=== PATIENT | female | born 1960 | race Caucasian/White ===

== ENCOUNTER 2021-08-07 21:53 | Emergency (ER) | payer OTHER ==
[~2021-08-07] VITALS: Ht 180.3 cm; Wt 81.6 kg
--- NOTE | 2021-08-07 22:25 | NUR ---
[id number] FROM [facility] C/O SYNCOPAL EPISODE W/VOMITING PER EMS LOW BP GIVEN 300 CC NS. PT A/OX3. TOLERATING R/A WELL WITH NO SOB. CONNECTED PT TO POX AND MONITOR. SAFETY MEASURES IN PLACE.
[2021-08-07] MEDS ORDERED: IV NS 0.9% 1,000 ML BAG IV ONE (22:30)
--- NOTE | 2021-08-07 22:38 | NUR ---
POC BS ACCUCHECK 139; DR. YANCEY DO AWARE
--- NOTE | 2021-08-07 22:39 | NUR ---
[facility] ANALYST AT PT'S BEDSIDE
[2021-08-07 23:11] LABS: BASOPHILS % (AUTO) 0.5 % (0.0-2.0); EOSINOPHILS % (AUTO) 1.2 % (0.0-6.0); HEMATOCRIT 41 % (33-45); HEMOGLOBIN 13.5 g/dL (11.5-14.8); LYMPHOCYTES # (AUTO) 2.4 K/uL (0.8-4.8); MEAN CORPUSCULAR HGB CONC 33 g/dl (31.0-36.0); MEAN CORPUSCULAR VOLUME 94 fL (82-100); MONOCYTES # (AUTO) 0.5 K/uL (0.1-1.30); MONOCYTES % (AUTO) 7.1 % (2.0-12.0); NEUTROPHILS % (AUTO) 57.2 % (43.0-81.0); PLATELET COUNT (AUTO) 214 K/uL (150-450); RED BLOOD CELL COUNT(AUTO) 4.31 MIL/uL (4.0-5.2)
[2021-08-07 23:13] LABS: CALCIUM, SERUM 8.5 mg/dL (8.5-10.1); CARBON DIOXIDE 24 mmol/L (21-32); CHLORIDE 106 mmol/L (98-107); CREATININE 1.1 mg/dL (0.6-1.3); GLUCOSE 148 mg/dL (74-106); POTASSIUM 3.1 mmol/L (3.5-5.1); SODIUM SERUM 140 mmol/L (136-145); UREA NITROGEN, BLOOD 19 mg/dL (7-18)
[2021-08-07 23:26] LABS: ALANINE AMINOTRANSFERASE 16 U/L (12-78); ALBUMIN 3.4 g/dL (3.4-5.0); ALKALINE PHOSPHATASE 48 U/L (46-116); ASPARTATE AMINOTRANSFERASE 15 U/L (15-37); BILIRUBIN,TOTAL 0.2 mg/dL (0.2-1.0); TOTAL PROTEIN, SERUM 6.6 g/dL (6.4-8.2)
[2021-08-07] MEDS ORDERED: ASPIRIN 325 MG TABLET PO ONE (23:30)
[2021-08-07] MEDS ORDERED: ONDANSETRON HCL/PF 4 MG/2 ML VIAL IV ONE (23:30)
[2021-08-07] MEDS ORDERED: ONDANSETRON HCL/PF 4 MG/2 ML VIAL ONE (23:43)
[2021-08-07] MEDS ORDERED: ASPIRIN 325 MG TABLET ONE (23:43)
--- NOTE | 2021-08-08 00:21 | NUR ---
PT ACCEPTED TO [facility] BY DR MYERS, ROOM 203-A. # FOR REPORT [phone]. [facility] ETA [id number]
[2021-08-08] MEDS ORDERED: POTASSIUM CHLORIDE 20 MEQ TAB.PRT.SR PO ONE ×2 (00:30→01:01)
--- NOTE | 2021-08-08 01:30 | NUR ---
REPORT GIVEN TO TATIANA FROM [facility]
[2021-08-08 01:41] VITALS: BP 117/71
--- NOTE | 2021-08-08 01:42 | NUR ---
[facility] AT PT'S BEDSIDE FOR PT TO TRANSFER TO [facility]. REPORT GIVEN TO EMT.
--- NOTE | 2021-08-08 01:47 | NUR ---
pt picked up by [facility]. v/s wnl at time of transfer.
== END 2021-08-08 02:16 | disposition short-term general hospital (02) ==
LOC: ER 22:01
DX: R55 Syncope and collapse (principal); R07.9 Chest pain, unspecified; E87.6 Hypokalemia; Z20.822 Contact with and (suspected) exposure to COVID-19
CPT/HCPCS: 36415 ×2; 70450; 71045; 80048; 80076; 80320; 82962; 84484 ×2; 85025; 85730; 87426; 93005; 96361; 96374; 99285; C9803; J2405; G0480; J7030